=== PATIENT | female | born 1960 | race African-American/Black ===

== ENCOUNTER 2017-06-07 20:34 | Emergency (ER) | payer SELFPAY ==
[~2017-06-07] VITALS: Ht 170.2 cm; Wt 100.0 kg
[2017-06-08] MEDS ORDERED: IBUPROFEN 600MG TABLET PO NR (00:30)
[2017-06-08 01:09] VITALS: BP 140/81
== END 2017-06-08 05:00 | disposition home or self-care (01) ==
LOC: ER 06-08 04:33
DX: S63.501A Unspecified sprain of right wrist, initial encounter (principal); S60.229A Contusion of unspecified hand, initial encounter; V89.2XXA Person injured in unspecified motor-vehicle accident, traffic, initial encounter; Y93.89 Activity, other specified; Y92.488 Other paved roadways as the place of occurrence of the external cause
CPT/HCPCS: 29125; 73110; 73130; 99284